=== PATIENT | male | born 1955 | race Caucasian/White ===

== ENCOUNTER → 2021-01-10 04:20 | Outpatient (CLI) | payer MEDICARE, SELFPAY ==
--- NOTE | 2021-01-10 11:00 | DI.NM_ITS ---
Exam(s) NM BONE SCAN WHOLE BODY GRP EXAM: NM BONE SCAN WHOLE BODY GRP CLINICAL HISTORY: PROSTATE CA,C61, STAGING EXAM. TECHNIQUE: Injected Dose: 24.5 mCi Tc-99m MDP Delayed Images: 2-3 hours. COMPARISON: No exams were available for comparison FINDINGS: Symmetric axial uptake. Bilateral renal excretion is identified. No focal area of intense suspicious uptake is seen. The areas of mildly increased uptake consistent with degenerative change is are see n in the right sternoclavicular joint, both feet and both wrists. There is a focus of increased acti vity in the right mandible. The patient states a known ???growth for his entire life in this area. IMPRESSION: 1. No evidence of metastatic disease. DATA REPOSITORY:
== END ==
PROVIDERS: Visit Provider Surgery
DX: C61 Malignant neoplasm of prostate (principal); Z12.89 Encounter for screening for malignant neoplasm of other sites
CPT/HCPCS: 78306